=== PATIENT | male | born 2000 | race Caucasian/White ===

== ENCOUNTER 2019-07-15 20:46 | Emergency (ER) | payer OTHER ==
[~2019-07-15] VITALS: Ht 182.9 cm; Wt 115.5 kg
[2019-07-15 21:12] VITALS: BP 134/89
--- NOTE | 2019-07-15 21:58 | NUR ---
pt to rm from lobby
[2019-07-15] MEDS ORDERED: KETOROLAC 30 MG/1 ML IM ONE (22:30)
[2019-07-15] MEDS ORDERED: KETOROLAC 30 MG/1 ML ONE (22:54)
== END 2019-07-15 23:19 | disposition home or self-care (01) ==
LOC: ED 23:00
DX: S60.221A Contusion of right hand, initial encounter (principal); W01.0XXA Fall on same level from slipping, tripping and stumbling without subsequent striking against object, initial encounter; Y93.89 Activity, other specified; Y92.89 Other specified places as the place of occurrence of the external cause; Y99.8 Other external cause status
CPT/HCPCS: 73110; 73130; 96372; 99283; J1885